=== PATIENT | male | born 1985 | race Caucasian/White ===

== ENCOUNTER 2022-09-14 22:23 | Emergency (ER) | payer OTHER ==
[~2022-09-14] VITALS: Ht 165.1 cm; Wt 72.0 kg
[2022-09-14 23:45] VITALS: BP 154/98
== END 2022-09-14 23:50 | disposition home or self-care (01) | DRG 923 ==
LOC: ED 22:23
DX: Z04.3 Encounter for examination and observation following other accident (principal); V49.40XA Driver injured in collision with unspecified motor vehicles in traffic accident, initial encounter